=== PATIENT | female | born 1990 | race Two or more races ===

== ENCOUNTER 2017-02-03 17:59 | Emergency (ER) | payer BC ==
[2017-02-03 18:06] VITALS: BP 107/65; PULSE 99; RESP 19; TEMP 99.2; O2SAT 100
--- NOTE | 2017-02-03 18:24 | ED PDOC ---
HPI: CCC, URI, Sore Throat Time Seen by Provider: 02/03/17 18:09 Chief Complaint (Nursing): ENT Problem Chief Complaint (Provider): spore thoart History Per: Patient History/Exam Limitations: no limitations Have you had recent travel within the past 21 days to any of the following countries: [place], [place], [place] or [place]?: No Onset/Duration Of Symptoms: Days (4) Current Symptoms Are (Timing): Still Present Location Of Pain: Throat Associated Symptoms: Fever, Sore Throat. denies: Chills, Cough, Sputum, Neck Pain, Sinus Drainage, Myalgias, Nasal Congestion, Nausea, Vomiting, Diarrhea, Other Additional Complaint(s): 26yo F in ED for eval of sore thoart noted 4 days ago-pt noted "white" debris in tonsil with swelling and pain on swallowing with change in voice. pt states she has been taking Augmentin but feels no relief. no known fever, but has been taking motrin 80mg BID. no rash, no ear pain Past Medical History Reviewed: Historical Data, Nursing Documentation, Vital Signs Vital Signs: Last Vital Signs Temp 99.2 F 02/03/17 18:02 Pulse 99 H 02/03/17 18:02 Resp 19 02/03/17 18:02 BP 107/65 02/03/17 18:02 Pulse Ox 100 02/03/17 18:25 - Medical History PMH: No Chronic Diseases - Family History Family History: States: No Known Family Hx - Immunization History Hx Tetanus Toxoid Vaccination: No Hx Influenza Vaccination: No Hx Pneumococcal Vaccination: No - Home Medications Home Medications: Ambulatory Orders Medication Instructions Recorded Amoxicillin/Clavulanate [Augmentin 1 tab PO DAILY 02/03/17 250 MG-125 MG Tab] - Allergies Allergies/Adverse Reactions: Allergies Allergy/AdvReac Type Severity Reaction Status Date / Time No Known Allergies Allergy Unverified 10/11/13 09:47 Review of Systems ROS Statement: Except As Marked, All Systems Reviewed And Found Negative Constitutional: Negative for: Fever, Chills ENT: Positive for: Throat Pain, Throat Swelling Physical Exam - Reviewed Nursing Documentation Reviewed: Yes Vital Signs Reviewed: Yes - Physical Exam Appears: Positive for: Non-toxic, No Acute Distress Head Exam: Positive for: ATRAUMATIC, NORMAL INSPECTION, NORMOCEPHALIC Skin: Positive for: Normal Color, Warm, DRY Eye Exam: Positive for: EOMI, Normal appearance, PERRL ENT: Positive for: Tonsillar Exudate (noted swelling R>L with exduates R>L. ), Tonsillar Swelling Cardiovascular/Chest: Positive for: Regular Rate, Rhythm Respiratory: Positive for: CNT, Normal Breath Sounds Neurologic/Psych: Positive for: Alert, Oriented - ECG O2 Sat by Pulse Oximetry: 100 - Progress ED Course And Treament: at this time, pt only wants a rapid strep test. Medical Decision Making Medical Decision Making: Pt is stable appearing VS are stable. Pt with negative Strep thoart. pt made aware of likely ni of having a [employer], however pt animate about f/u as an putpt with ENT. pt advised to return to Ed if with worsened symptom for CT of neck and labs Disposition - Clinical Impression Clinical Impression: Throat pain - Patient ED Disposition Is Patient to be Admitted: No Counseled Patient/Family Regarding: Studies Performed, Diagnosis, Need For Followup, Rx Given - Disposition Referrals: [facility] [Provider Group] Bala Meza DO [Primary Care Provider] - [facility] [Outside] Disposition: Routine/Home Disposition Time: 18:45 Condition: GOOD Instructions: Pharyngitis (ED), Peritonsillar Abscess (ED)
== END 2017-02-03 18:55 | disposition home or self-care (01) ==
LOC: SUPCPDRO 17:59 → H.ER 17:59
DX: R07.0 Pain in throat (principal); J02.9 Acute pharyngitis, unspecified